=== PATIENT | female | born 2005 | race Caucasian/White ===

== ENCOUNTER 2024-06-03 07:49 | Outpatient (CLI) | payer BC, SELFPAY ==
--- OUTSIDE RECORDS SUMMARY | 2024-06-03 07:52 | XMS_ITS | Encounter Summary ---
Author Organization [facility] Address [address] [place] [address]. [place] [address] Care Team Providers Care Pantograph Setter Name Role Phone Elisabet Trinh PA-C Unavailable [phone] Madisyn Goodman APRN MEDICAL RECORDS ANALYST Primary Care Provide r Windy Morris MD Unavailable [phone] Reason for Visit * Reason Onset Date Comments Refill Request 07/17/2023 Encounter Details Date Type Department Care Team (Late st Contact Info) Description 07/17/2023 MyC Refill [address] [phone] Madisyn Goodman APRN MEDICAL RECORDS ANALYST [address] [place] [address] Refill Request Social History Tobacco Use Types Packs/Day Years Used Date Smoking Tobacco: Never Smokeless Tobacco: Never Alcohol Use Standard Drinks/Week Comments Never 0 (1 standard drink = 0.6 oz pur e alcohol) AUDIT-C Answer Date Recorded Q1: How often do you have a drink containing alc ohol? Never 10/06/2020 Average Number of Drinks Not on file 021 Frequency of Binge Drinking Not on file 09/20 PHQ-2 Answer Date Recorded PHQ-2 Score 0 06/13/2023 Adolescent Education Answer Date Record ed Getting School Help Needed Not on file 04/13 Food Insecurity Answer Date Recorded Within the past 12 months, d id you worry that your food would run out before you got money to buy more? No 06/12/2023 Within the past 12 months, d id the food you bought just not last and you didn? t have money to get more? No 06/12/2023 Housing Stability Answer Date Recorded Do you have housing? (Tawnya andrade is defined as stable permanent housing and does not include staying ouside in a car, in a tent, in an abandoned building, in an overnight senior living, or couch-surfing.) Yes 06/12/2023 Are you worried about losing your housing? No 06/12/2023 Financial Resource Strain Answer Date R ecorded Within the past 12 months, h ave you or your family members you live with been unable to get utilities (heat, electricity) when it was really needed? No 06/12/2023 Transportation Needs Answer Date Record ed Within the past 12 months, h as lack of transportation kept you from medical appointments, getting your medicines, non-medical meetings or appointments, work, or from getting things that you need? No 06/12/2023 Interpersonal Safety Answer Date Record ed Do you feel physically and e motionally safe where you currently live? Yes 06/13/2023 Within the past 12 months, h ave you been hit, slapped, kicked or otherwise physically hurt by someone? No 06/13/2023 Within the past 12 months, h ave you been humiliated or emotionally abused in other ways by your partner or ex-partner? 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 Gender Identity Not on file Sexual Orientation Not on file documented as of this encounter Plan of Treatment Not on file documented as of this encounter Visit Diagnoses Not on filedocumented in this encounter Care Teams Pantograph Setter Relationship Specialty Start Date End Date Madisyn Goodman APRN CNP [address] [place] [address] PCP - General 06/12/23 Elisabet Trinh PA-C [address] [place] [address] Assigned Neuroscience Provider 03/10/23 08/15/23 Windy Morris MD [address] [place] [address] Assigned PCP 06/16/23 documented as of this encounter
--- OUTSIDE RECORDS SUMMARY | 2024-06-03 07:52 | XMS_ITS | Encounter Summary ---
Author Organization [facility] Address [address] [place] [address] Care Team Providers Care Dental Hygiene Instructor Name Role Phone Madisyn Gregg APRN, CNP Primary Care Provide r Windy Morris MD Unavailable [phone] Reason for Visit * Reason Comments Medication Refill Encounter Details Date Type Department Care Team (Late st Contact Info) Description 02/25/2024 Refill [facility] [address] [place] [phone] Madisyn Gregg APRN [address] [address] Medication Refill Social History Tobacco Use Types Packs/Day Years [...] in an abandoned building, in an overnight alf, or couch-surfing.) Yes 06/12/2023 Are you worried [...] on file 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 Patient is due for a routine physical. Madisyn Gregg DNP, BRIAN-CLARK documented in this encounter Plan of Treatment Not on file documented as of this encounter Visit Diagnoses Diagnosis Contraceptive management Unspecified contraceptive management documented in this encounter Care Teams Dental Hygiene Instructor Relationship Specialty Start Date End Date Madisyn Gregg APRN MERCURY CRACKING TESTER [address] [place] [address], [place] [address] PCP - General 06/12/23 Windy Morris MD [address] [place] [address], [place] [address] Assigned PCP 06/16/23 documented as of this encounter
--- OUTSIDE RECORDS SUMMARY | 2024-06-03 07:52 | XMS_ITS | Encounter Summary ---
Author Organization [facility] Address [address] [place] [address]. [place] [address] Care Team Providers Care Anatomical Embalmer Name Role Phone Madisyn Goodman APRN, CNP Primary Care Provide r Windy Morris MD Unavailable [phone] Reason for Visit * Reason Onset Date Comments Refill Request 03/06/2024 Encounter Details Date Type Department Care Team (Late st Contact Info) Description 03/06/2024 MyC Refill [facility] [address] [place] [phone] Madisyn Goodman APRN CNP [address] [place] [address] Refill Request Social History Tobacco Use Types [...] in an abandoned building, in an overnight group home, or couch-surfing.) Yes 06/12/2023 Are you worried [...] on file 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 Gender Identity Not on file Sexual Orientation Not on file documented as of this encounter Miscellaneous Notes * Telephone Encounter - Elvi Avilez, RN - 03/07/2024 2:02 PM CDT Pending Prescriptions: Disp Refills norgestim-eth estrad triphasic (ORTHO TRI-*28 tab*0 Sig: Take 1 tablet by mouth daily NEEDS OFFICE VISIT FOR FURTHER REFILLS Routing refill request to provider for review/approval because: Requested Prescriptions Pending Prescriptions Disp Refills norgestim-eth estrad triphasic (ORTHO TRI-CYCLEN) 0.18/0.215/0.25 MG-35 MCG tablet 28 tablet 0 Sig: Take 1 tablet by mouth daily NEEDS OFFICE VISIT FOR FURTHER REFILLS Contraceptives Protocol Failed - 03/06/2024 7:20 PM Failed - Medication indicated for associated diagnosis Medication is associated with one or more of the following diagnoses: Contraception Acne Dysmenorrhea Menorrhagia Amenorrhea PCOS Premenstrual Dysphoric Disorder Irregular menses Endometriosis Passed - Patient is not a current smoker if age is 35 or older Passed - Recent (12 mo) or future (30 days) visit within the authorizing provider's specialty The patient must have completed an in-person or virtual visit within the past 12 months or has a future visit scheduled within the next 90 days with the authorizing provider???s specialty. Urgent care and e-visits do not quality as an office visit for this protocol. Passed - Medication is active on med list Passed - No active on record Passed - No positive test in past 12 months Elvi Avilez RN [facility] documented in this encounter Plan of Treatment Not on file documented as of this encounter Visit Diagnoses Diagnosis Contraceptive management Unspecified contraceptive management documented in this encounter Care Teams Anatomical Embalmer Relationship Specialty Start Date End Date Madisyn Goodman APRN CNP [address] [place] [address] PCP - General 06/12/23 Windy Morris MD [address] [place] [address] Assigned PCP 06/16/23 documented as of this encounter
--- OUTSIDE RECORDS SUMMARY | 2024-06-03 07:52 | XMS_ITS | Clinical Summary ---
Author Organization [id number] Address [place], [place] [address] Care Team Providers Care Supervisor Quality Control Name Role Phone None, Provided Primary Care Provider Unavailabl e Allergies No known active allergies Medications Medication Sig Dispensed Refills Start Date End Date Status norgestimate-ethinyl estradioL (ORTHO TRI-CYCLEN) 0.18/0.215/0.25 mg-35 mcg (28) tablet Take 1 Tablet by mouth once daily. 09/03/2023 Active ondansetron (ZOFRAN ODT) [address] 4 mg on the tongue every 8 hours if needed for Nausea/Vomiting . 09/03/2023 Active busPIRone 7.5 mg tabletIndications:Anxi ety Take 2 Tablets (15 mg) by mouth two times daily. 120 Tablet 10/04/2023 Active Active Problems No known active problems Immunizations Name Administration Dates Next Due EXdP-PjcF-AHV (Pediarix) 01/06/2004,2003,0 2003 DTaP-IPV (Kinrix) 02/16/2009 Hepatitis A (Adult) 06/13/2023 Hib Conjugate, Unspecified 2003,2003 Influenza A (H1N1), Live Intranasal 08/05/2009,1 09/08/2008 MMR 02/16/2009,01/19/2009 Meningococcal Vaccine (Menactra) 02/21/2016 Pneumococcal conj 7-Valent (Prevnar 7) 4,2003 Tdap 02/21/2016 Varicella Vaccine 05/31/2009,01/19/2009 Social History Tobacco Use Types Packs/Day Years Used Date Smoking Tobacco: Never Smokeless Tobacco: Never Alcohol Use Standard Drinks/Week Comments Never 0 (1 standard drink = 0.6 oz pur e alcohol) PHQ-2 Answer Date Recorded PHQ-2 TOTAL SCORE 2 09/06/2023 Social Connections Answer Date Recorded Do you often feel lonely or isolated from those around you? 0 09/06/2023 Financial Resource Strain Answer Date R ecorded Difficulty of Paying Living Expenses 3 09/06/2023 Difficulty of Paying Living Expenses Not on file 09/06/2023 Food Insecurity Answer Date Recorded Do you worry your food will run out before you are able to buy more? 1 09/06/2023 Transportation Needs Answer Date Record ed Does lack of transportation keep you from medica l appointments? 1 09/06/2023 Does lack of transportation keep you from work, meetings or getting things that you need? 1 09/06/2023 Housing Stability Answer Date Recorded What is your housing situation today? 1 09/06/2023 Sex and Gender Information Value Date Recorded Sex Assigned at Not on file Gender Identity Not on file Sexual Orientation Not on file Obstetrics History Last Filed Vital Signs Vital Sign Reading Time Taken Comments Blood Pressure 106/66 09/06/2023 10:32 AM BEESWAX BLEACHER Pulse 99 09/06/2023 10:32 AM BEESWAX BLEACHER Temperature 37.4 ??C (99.4 ??F) 04/01/2018 2:14 PM CD T Respiratory Rate - - Oxygen Saturation 100% 09/06/2023 10:32 AM BEESWAX BLEACHER Inhaled Oxygen Concentration - - Weight 52.6 kg (116 lb) 09/06/2023 10:32 AM BEESWAX BLEACHER Height 164.5 cm (5' 4.76) 04/01/2018 2:14 PM CD T Body Mass Index - - Plan of Treatment Health Maintenance Due Date Last Done Comments HIV for age 15-65 2018 HPV series for age 9-26 (1 - 3-dose series) 2018 Chlamydia for age 16-24 2019 BMI (ht and wt on same day) for age 18+ 2021 Hepatitis C screening for ag e 18-79 2021 COVID-19 vaccine series ( season) 2024 08/19/2021, 02/25/2021 Influenza for age 9-49 03/23/2024 0, 07/08/2009 Pap test for age 21-65 2024 Depression screening for age 12+ 09/06/2024 09/06/2023, 04/01/2018 Tetanus booster 02/20/2026 02/21/2016 Pneumococcal series for age 6-64 Aged Out 2003, 2003 No longer eligible based on patient's age to complete this topic Meningococcal series for age 11-21 Aged Out 02/21/2016 No longer eligible b ased on patient's age to complete this topic Tdap Completed 02/21/2016 Care Teams Supervisor Quality Control Relationship Specialty Start Date End Date None, Provided . PCP - General 08/13/07
--- OUTSIDE RECORDS SUMMARY | 2024-06-03 07:52 | XMS_ITS | Encounter Summary ---
Author Organization [facility] Address [address] [place] [address] Care Team Providers Care Gas Engineer Name Role Phone Madisyn Goodman APRN, CNP Unavailable Elisabet Trinh PA-C Unavailable [phone] Madisyn Goodman APRN, CNP Primary Care Provide r Windy Morris MD Unavailable [phone] Reason for Visit * Reason Onset Date Comments Prior Auth - Medication 06/13/2023 Scopolam ine 1mg /3day Encounter Details Date Type Department Care Team (Late st Contact Info) Description 06/13/2023 Telephone [facility] [address] [place] [phone] Madisyn Goodman APRN [facility] [address] [place] [address] Prior Auth - Medication (Scopolamine 1mg /3day ) Social History Tobacco Use Types Packs/Day Years [...] in an abandoned building, in an overnight skilled nursing, or couch-surfing.) Yes 06/12/2023 Are you worried [...] on file Legal Sex Female 8:42 AM APPLICATION DEVELOPER Gender Identity Not on file Sexual Orientation Not on file documented as of this encounter Miscellaneous Notes * Telephone Encounter - Erna Condeomid - 06/19/2023 5:29 PM CST Images from the original note were not included. Prior Authorization Not Needed per Insurance Medication: SCOPOLAMINE 1 MG/3DAYS TD PT72 Insurance Company: [employer] - Expected CoPay: $ Pharmacy Filling the Rx: [facility] [place], [place] - [address] [place] [address] Pharmacy Notified: Yes Patient Notified: Yes ICATION DEVELOPER * Telephone Encounter - Naya Conde - 06/19/2023 2:01 PM CST Images from the original note were not included. PA Initiation Medication: SCOPOLAMINE 1 MG/3DAYS TD PT72 Insurance Company: [employer] [facility] - Pharmacy Filling the Rx: [facility] [place] [id number] [place] [address] Filling Pharmacy Filling Pharmacy Fax: Start Date: 06/19/2023 ICATION DEVELOPER * Telephone Encounter - Luanne Aldridge - 06/13/2023 5:42 PM CST Prior Authorization Retail Medication Request Medication/Dose: Scopolamine 1mg /3day Diagnosis and ICD code (if different than what is on RX): New/renewal/insurance change PA/secondary ins. PA: Previously Tried and Failed: Rationale: PA REQUIRED [phone] PRESCRIBER NOT ENROLLED IN STATE MEDICAID PROGRAM. PLEASE CONTACT [facility] AT [phone] OR , OPTION 2 Insurance Primary: [facility] Secondary (if applicable): Insurance ID: Pharmacy Information (if different than what is on RX) Name: Phone: Fax: ICATION DEVELOPER documented in this encounter Plan of Treatment Not on file documented as of this encounter Visit Diagnoses Not on filedocumented in this encounter Care Teams Gas Engineer Relationship Specialty Start Date End Date Madisyn Goodman APRN [facility] [address] [place] [address] PCP - General 06/12/23 Madisyn Goodman APRN CNP [address] [place] [address] Assigned PCP 09/16/22 06/15/23 Elisabet Trinh PA-C [address] [place] [address] Assigned Neuroscience Provider 03/10/23 08/15/23 Windy Morris MD [address] [place] [address] Assigned PCP 06/16/23 documented as of this encounter
--- OUTSIDE RECORDS SUMMARY | 2024-06-03 07:52 | XMS_ITS | Encounter Summary ---
Author Organization [facility] Address [address] [place] [address]. [place] [address] Care Team Providers Care Account Specialist Name Role Phone Madisyn Goodman APRN OFFICE TECHNICIAN Primary Care Provide r Windy Morris MD Unavailable [phone] Encounter Details Date Type Department Care Team (Late st Contact Info) Description 04/29/2024 MyC Medical Advice [facility] [address] [place] [phone] Kristin Lacey CMA Social History Tobacco Use Types Packs/Day Years [...] Answer Date Recorded Do you have housing? 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
--- OUTSIDE RECORDS SUMMARY | 2024-06-03 07:52 | XMS_ITS | Encounter Summary ---
Author Organization [facility] Address [address] [place] [address] Care Team Providers Care Chemical Sales Representative Name Role Phone Madisyn Goodman APRN, CNP Primary Care Provide r Windy Morris MD Unavailable [phone] Reason for Visit * Reason Onset Date Comments Panel Management 04/29/2024 Encounter Details Date Type Department Care Team (Late st Contact Info) Description 04/29/[address] 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 Questions for provider review: None Kristin Lacey CMA documented in this encounter Plan of Treatment Not on file documented as of this encounter Visit Diagnoses Not on filedocumented in this encounter Care Teams Chemical Sales Representative Relationship Specialty Start Date End Date Madisyn Goodman APRN INSTRUCTOR MILITARY SCIENCE [address] [place] [address], [place] [address] PCP - General 06/12/23 Windy Morris MD [address] [place] [address], [place] [address] Assigned PCP 06/16/23 documented as of this encounter
--- OUTSIDE RECORDS SUMMARY | 2024-06-03 07:52 | XMS_ITS | Encounter Summary ---
Author Organization [facility] Address [address] [place] [address] Care Team Providers Care Team Foreman Name Role Phone Madisyn Goodman APRN, CNP Primary Care Provide r Windy Morris MD Unavailable [phone] Reason for Visit * Reason Comments Med Change Request Encounter Details Date Type Department Care Team (Late st Contact Info) Description 03/06/2024 [facility] [address] [place] [phone] Madisyn Goodman APRN [address] [address] Med Change Request Social History Tobacco Use Types Packs/Day [...] in an abandoned building, in an overnight detention, or couch-surfing.) Yes 06/12/2023 Are you worried [...] on file Legal Sex Female 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
--- OUTSIDE RECORDS SUMMARY | 2024-06-03 07:52 | XMS_ITS | Clinical Summary ---
Author Organization [facility] Address [address] [place] [address] Care Team Providers Care Special Deputy Sheriff Name Role Phone Madisyn Goodman APRN, CNP Primary Care Provide r Windy Morris MD Unavailable [phone] Allergies No known active allergies Medications mupirocin (BACTROBAN) 2 % external ointmentIndicatio ns:Angular cheilitis due to bacterial infection Apply topically 3 times daily 30 g 1 Active Additional Information Patient not taking.Reported on 03/06/2023 triamcinolone (KENALOG) 0.025 % external ointmentIndicatio ns:Angular cheilitis Apply topically 2 times daily 15 g 3 Active scopolamine (TRANSDERM) 1 MG/3DAYS 72 hr patchIndications: Motion sickness, initial encounter Place 1 patch onto the skin every 72 hours 10 patch 3 Active azithromycin (ZITHROMAX) 500 MG tabletIndications :Traveler's diarrhea Take 1 tablet (500 mg) by mouth daily 6 tablet 3 Active norgestim-eth estrad triphasic (ORTHO TRI-CYCLEN) 0.18/0.215/0.25 MG-35 MCG tabletIndications :Encounter for surveillance of contraceptive pills Take 1 tablet by mouth daily NEEDS OFFICE VISIT FOR FURTHER REFILLS 84 tablet 4 Active Active Problems No known active problems Encounters Date Type Department Care Team Description 04/29/2024 MyC Medical Advice [address] [place] [address] Kristin Lacey CMA 04/29/[address] [place] [address] Windy Morris MD Panel Management 03/08/2024 MyC Refill [address] [place] [address] Madisyn Goodman APRN CONFERENCE ASSISTANT Refill Request 03/06/2024 MyC Refill [address] [place] [address] Madisyn Goodman APRN CONFERENCE ASSISTANT Refill Request 03/06/[address] [place] [address] Madisyn Goodman APRN CNP Med Change Request from Last 3 Months Immunizations Name Administration Dates Next Due DTAP-IPV, <7Y (QUADRACEL/KINRIX) 02/16/2009 DTaP/HepB/IPV 01/06/2004,2003,2003 [id number] Novel Flu- Nasal 08/05/2009,07/08/2009 HIB(PRP-OMP)(PedvaxHIB) 2003,2003 Hepatitis A (ADULT 19+) 06/13/2023 Influenza, Split Virus, Triv alent, Pf (Fluzone\Fluarix) 05/02/2024 MMR 02/16/2009,01/19/2009 Meningococcal ACWY (Menactra??) 02/21/2016 Pneumococcal (PCV 7) 2003,2003 TDAP Vaccine (Adacel) 02/21/2016 Varicella 05/31/2009,01/19/2009 Family History Medical History Relation Comments No Known Problems Father Hypertension Maternal Grandfather Hypertension Maternal Grandmother No Known Problems Mother Colon Cancer Paternal Grandfather Hypertension Paternal Grandmother Relation Status Comments Father Alive Maternal Grandfather Alive Maternal Grandmother Alive Mother Alive Paternal Grandfather Paternal Grandmother Alive Social History Tobacco Use Types Packs/Day Years [...] on file Legal Sex Female 8:42 AM END PACKER Gender Identity Not on file Sexual Orientation Not on file Last Filed Vital Signs Vital Sign Reading Time Taken Comments Blood Pressure 110/70 06/13/2023 9:25 AM END PACKER Pulse 82 06/13/2023 9:25 AM END PACKER Temperature 37.2 ??C (99 ??F) 06/13/2023 9:25 AM END PACKER Respiratory Rate 12 06/13/2023 9:25 AM END PACKER Oxygen Saturation 100% 06/13/2023 9:25 AM END PACKER Inhaled Oxygen Concentration - - Weight 57.6 kg (127 lb) 06/13/2023 9:25 AM END PACKER Height 165.5 cm (5' 5.16) 06/13/2023 9:25 AM CS T Body Mass Index 21.03 06/13/2023 9:25 AM END PACKER Plan of Treatment Health Maintenance Due Date Last Done Comments ADVANCE CARE PLANNING 2003 ANNUAL REVIEW OF HM ORDERS 2003 YEARLY PREVENTIVE VISIT 2003 HIV SCREENING 2018 HPV IMMUNIZATION (1 - 3-dose series) 2018 HEPATITIS C SCREENING 2021 PHQ-2 (once per calendar year) 2023 06/13/2023 COVID-19 Vaccine ( season) 2024 08/19/2021, 02/25/2021 PAP 2024 DTAP/TDAP/TD IMMUNIZATION (6 - Td or Tdap) 02/20/2026 02/21/2016, 02/16/2009, 01/06/2004, Additional history exists RSV VACCINE (1 - 1-dose 75+ series) 2078 Pneumococcal Vaccine: Pediatrics (0 to 5 Years) and At-Risk Patients (6 to 64 Years) Aged Out 2003, 2003 No longer eligibl e based on patient's age to complete this topic HEPATITIS B IMMUNIZATION Completed 004, 2003, 2003 MENINGITIS IMMUNIZATION Aged Out 02/21/2016 No l onger eligible based on patient's age to complete this topic INFLUENZA VACCINE Completed 05/02/2024, , 07/08/2009 RSV MONOCLONAL ANTIBODY Aged Out No l onger eligible based on patient's age to complete this topic Insurance [facility] [place] [address] [facility] [employer] OUT OF STATE Care Teams Special Deputy Sheriff Relationship Specialty Start Date End Date Madisyn Goodman APRN CONFERENCE ASSISTANT [address] [place] [address], [place] [address] PCP - General 06/12/23 Windy Morris MD [address] [place] [address], [place] [address] Assigned PCP 06/16/23
--- OUTSIDE RECORDS SUMMARY | 2024-06-03 07:52 | XMS_ITS | Referral Summary ---
Author Organization [facility] Address [address] [place] [address] Care Team Providers Care Physicist Cryogenics Name Role Phone Madisyn Goodman APRN, CNP Primary Care Provide r Windy Morris MD Unavailable [phone] Encounters Date Type Department Care Team Description 04/29/2024 MyC Medical Advice [address] [phone] Kristin Lacey CMA 04/29/[address] [phone] Windy Morris MD Panel Management 03/08/2024 MyC Refill [address] [phone] Madisyn Goodman APRN CNP Refill Request 03/06/2024 MyC Refill [address] [phone] Madisyn Goodman APRN CNP Refill Request 03/06/[address] [phone] Madisyn Goodman APRN CNP Med Change Request from Last 3 Months Allergies No known active allergies Medications mupirocin [...] problems Immunizations Name Administration Dates Next Due DTAP-IPV, <7Y (QUADRACEL/KINRIX) 02/16/2009 DTaP/HepB/IPV 01/06/2004,2003,2003 [id number] Novel Flu- Nasal 08/05/2009,07/08/2009 HIB(PRP-OMP)(PedvaxHIB) 2003,2003 Hepatitis A (ADULT 19+) 06/13/2023 Influenza, Split Virus, Triv alent, Pf (Fluzone\Fluarix) 05/02/2024 MMR 02/16/2009,01/19/2009 Meningococcal ACWY (Menactra??) 02/21/2016 Pneumococcal (PCV 7) 2003,2003 TDAP Vaccine (Adacel) 02/21/2016 Varicella 05/31/2009,01/19/2009 Social History Tobacco Use Types Packs/Day [...] Date Recorded Do you have housing? (Tawnya g is defined as stable permanent housing and does not include staying ouside in a car, in a tent, in an abandoned building, in an overnight residential, or couch-surfing.) Yes 06/12/2023 Are you worried [...] on file Legal Sex Female 8:42 AM PROCESS TECH Gender Identity Not on file Sexual Orientation Not on file Last Filed Vital Signs Vital Sign Reading Time Taken Comments Blood Pressure 110/70 06/13/2023 9:25 AM PROCESS TECH Pulse 82 06/13/2023 9:25 AM PROCESS TECH Temperature 37.2 ??C (99 ??F) 06/13/2023 9:25 AM PROCESS TECH Respiratory Rate 12 06/13/2023 9:25 AM PROCESS TECH Oxygen Saturation 100% 06/13/2023 9:25 AM PROCESS TECH Inhaled Oxygen Concentration - - Weight 57.6 kg (127 lb) 06/13/2023 9:25 AM PROCESS TECH Height 165.5 cm (5' 5.16) 06/13/2023 9:25 AM CS T Body Mass Index 21.03 06/13/2023 9:25 AM PROCESS TECH Plan of Treatment Not on file Insurance [facility] OUT OF STATE [facility] Care Teams Physicist Cryogenics Relationship Specialty Start Date End Date Madisyn Goodman APRN CNP [address] [place] [address] PCP - General 06/12/23 Windy Morris MD [address] [place] [address] Assigned PCP 06/16/23
--- OUTSIDE RECORDS SUMMARY | 2024-06-03 07:52 | XMS_ITS | Encounter Summary ---
Author Organization [facility] Address [address] [place] [address]. [place] [address] Care Team Providers Care Welt Rougher Name Role Phone Madisyn Goodman APRN, CNP Primary Care Provide r Windy Morris MD Unavailable [phone] Reason for Visit * Reason Onset Date Comments Refill Request 03/08/2024 Encounter Details Date Type Department Care Team (Late st Contact Info) Description 03/08/2024 MyC Refill [facility] [address] [place] [phone] Madisyn Goodman APRN CNP [address] [place] [address] Refill Request Social History Tobacco Use Types [...] in an abandoned building, in an overnight usp, or couch-surfing.) Yes 06/12/2023 Are you worried [...] on file Legal Sex Female 8:42 AM ACCESS SERVICE REPRESENTATIVE Gender Identity Not on file Sexual Orientation Not on file documented as of this encounter Plan of Treatment Not on file documented as of this encounter Visit Diagnoses Diagnosis Encounter for surveillance of contraceptive pills Surveillance of previously prescribed contraceptive pill documented in this encounter Care Teams Welt Rougher Relationship Specialty Start Date End Date Madisyn Goodman APRN CNP [address] [place] [address] PCP - General 06/12/23 Windy Morris MD [address] [place] [address] Assigned PCP 06/16/23 documented as of this encounter
== END 2024-06-03 07:50 | disposition home or self-care (01) ==
PROVIDERS: Visit Provider Family Medicine
DX: Z01.419 Encounter for gynecological examination (general) (routine) without abnormal findings (principal); R53.83 Other fatigue; F41.1 Generalized anxiety disorder; R00.2 Palpitations; R55 Syncope and collapse; Z12.4 Encounter for screening for malignant neoplasm of cervix; Z13.6 Encounter for screening for cardiovascular disorders; Z11.3 Encounter for screening for infections with a predominantly sexual mode of transmission
CPT/HCPCS: 80053; 80061; 82607; 84443; 87491; 87591; 87624; 87625; 88141; 88142

== ENCOUNTER 2024-06-25 20:54 | Emergency (ER) | payer BC, SELFPAY ==
[2024-06-25 21:02] VITALS: BP 132/74; PULSE 95; RESP 18; TEMP 36.7; O2SAT 100; BMI 22.5
[2024-06-25 21:04] VITALS: BP 136/88; PULSE 85; RESP 20; O2SAT 99
--- NOTE | 2024-06-25 21:10 | CRLHL7_ITS ---
For Patients: As a result of the Century Cures Act, medical imaging exams and procedure reports are released immediately into your electronic medical record. You may view this report before your referring provider. If you have questions, please contact your health care provider. INDICATION: Chest pain. TECHNIQUE: Chest 2 views. COMPARISON: None. FINDINGS: Cardiovascular and mediastinum: Heart size and vasculature are normal in caliber and appearance. Lungs and pleural spaces: Lungs are clear. No sign of infiltrate or mass. No sign of pleural effusion. No pneumothorax. Bones and soft tissues: No significant findings. IMPRESSION: No acute or significant findings. Dictated by Kannan Vaughan MD @ 06/25/2024 10:29:24 PM (Electronically Signed)
[2024-06-25 21:14] VITALS: BP 129/73; PULSE 97; RESP 20; O2SAT 99
--- OUTSIDE RECORDS SUMMARY | 2024-06-25 21:23 | XMS_ITS | Clinical Summary ---
Author Organization [facility] Address [address] [place] [address] Care Team Providers Care Inside Sales Engineer Name Role Phone Madisyn Goodman APRN, CNP Primary Care Provide r Windy Morris MD Unavailable [phone] Allergies No known active allergies Medications [...] Care Team Description 04/29/2024 MyC Medical Advice [facility] [address] [place] [phone] Kristin Lacey CMA 04/29/2024 Telephone [facility] [address] [place] [phone] Windy Morris MD Panel Management from Last 3 Months Immunizations Name Administration Dates Next Due DTAP-IPV, <7Y (QUADRACEL/KINRIX) 02/16/2009 DTaP/HepB/IPV 01/06/2004,2003,2003 [id number] Novel Flu- Nasal 08/05/2009,07/08/2009 HIB(PRP-OMP)(PedvaxHIB) 2003,2003 Hepatitis A (ADULT 19+) 06/13/2023 Influenza, Split Virus, Triv alent, Pf (Fluzone\Fluarix) 05/02/2024 MMR 02/16/2009,01/19/2009 Meningococcal ACWY (Menactra ) 02/21/2016 Pneumococcal (PCV 7) 2003,2003 TDAP Vaccine [...] you bought just not last and you didn t have money to get more? No 06/12/2023 Housing Stability Answer Date Recorded Do you have housing? (Tanwya andrade is defined as stable permanent housing and does not include staying ouside in a car, in a tent, in an abandoned building, in an overnight fci, or couch-surfing.) Yes 06/12/2023 Are you worried [...] on file Legal Sex Female 8:42 AM KNITTING INSPECTOR Gender Identity Not on file Sexual Orientation Not on file Last Filed Vital Signs Vital Sign Reading Time Taken Comments Blood Pressure 110/70 06/13/2023 9:25 AM KNITTING INSPECTOR Pulse 82 06/13/2023 9:25 AM KNITTING INSPECTOR Temperature 37.2 C (99 F) 06/13/2023 9:25 AM KNITTING INSPECTOR Respiratory Rate 12 06/13/2023 9:25 AM KNITTING INSPECTOR Oxygen Saturation 100% 06/13/2023 9:25 AM KNITTING INSPECTOR Inhaled Oxygen Concentration - - Weight 57.6 kg (127 lb) 06/13/2023 9:25 AM KNITTING INSPECTOR Height 165.5 cm (5' 5.16) 06/13/2023 9:25 AM CS T Body Mass Index 21.03 06/13/2023 9:25 AM KNITTING INSPECTOR Plan of Treatment Health Maintenance Due Date Last Done Comments ADVANCE CARE PLANNING 2003 ANNUAL REVIEW OF HM ORDERS 2003 YEARLY PREVENTIVE VISIT 2003 HIV SCREENING 2018 HPV IMMUNIZATION (1 - 3-dose series) 2018 HEPATITIS C SCREENING 2021 PHQ-2 (once per calendar year) 2023 06/13/2023 COVID-19 Vaccine (3 - season) 2024 08/19/2021, 02/25/2021 PAP 2024 DTAP/TDAP/TD [...] age to complete this topic Insurance [facility] OUT OF STATE Care Teams Inside Sales Engineer Relationship Specialty Start Date End Date Madisyn Goodman APRN CNP [address] [place] [address] PCP - General 06/12/23 Windy Morris MD [address] [place] [address] Assigned PCP 06/16/23
--- OUTSIDE RECORDS SUMMARY | 2024-06-25 21:23 | XMS_ITS | Encounter Summary ---
Author Organization [facility] Address [address] [place] [address]. [place] [address] Care Team Providers Care Automotive Sales Manager Name Role Phone Elisabet Trinh PA-C Unavailable [phone] Madisyn Goodman APRN ALGORITHM DESIGN ENGINEER Primary Care Provide r Windy Morris MD Unavailable [phone] Reason for Visit * Reason Onset Date Comments Refill Request 07/17/2023 Encounter Details Date Type Department Care Team (Late st Contact Info) Description 07/17/2023 MyC Refill [address] [phone] Madisyn Goodman APRN ALGORITHM DESIGN ENGINEER [address] [place] [address] Refill Request Social History Tobacco Use Types [...] on file Legal Sex Female 8:42 AM ART GALLERY INTERNSHIP Gender Identity Not on file Sexual Orientation Not on file documented as of this encounter Plan of Treatment Not on file documented as of this encounter Visit Diagnoses Not on filedocumented in this encounter Care Teams Automotive Sales Manager Relationship Specialty Start Date End Date Madisyn Goodman APRN CNP [address] [place] [address] PCP - General 06/12/23 Elisabet Trinh PA-C [address] [place] [address] Assigned Neuroscience Provider 03/10/23 08/15/23 Windy Morris MD [address] [place] [address] Assigned PCP 06/16/23 documented as of this encounter
--- OUTSIDE RECORDS SUMMARY | 2024-06-25 21:23 | XMS_ITS | Referral Summary ---
Author Organization [facility] Address [address] [place] [address] Care Team Providers Care Store Leader Name Role Phone Madisyn Goodman APRN, CNP Primary Care Provide r Windy Morris MD Unavailable [phone] Encounters Date Type Department Care Team Description 04/29/2024 MyC Medical Advice [address] [phone] Kristin Lacey CMA 04/29/[address] [phone] Windy Morris MD Panel Management from Last 3 Months Allergies No known [...] Due DTAP-IPV, <7Y (QUADRACEL/KINRIX) 02/16/2009 DTaP/HepB/IPV 01/06/2004,2003,2003 [id number] Novel Flu- Nasal 08/05/2009,07/08/2009 HIB(PRP-OMP)(PedvaxHIB) 2003,2003 Hepatitis [...] in an abandoned building, in an overnight fpc, or couch-surfing.) Yes 06/12/2023 Are you worried [...] on file Legal Sex Female 8:42 AM BREAST BUFFER Gender Identity Not on file Sexual Orientation Not on file Last Filed Vital Signs Vital Sign Reading Time Taken Comments Blood Pressure 110/70 06/13/2023 9:25 AM BREAST BUFFER Pulse 82 06/13/2023 9:25 AM BREAST BUFFER Temperature 37.2 C (99 F) 06/13/2023 9:25 AM BREAST BUFFER Respiratory Rate 12 06/13/2023 9:25 AM BREAST BUFFER Oxygen Saturation 100% 06/13/2023 9:25 AM BREAST BUFFER Inhaled Oxygen Concentration - - Weight 57.6 kg (127 lb) 06/13/2023 9:25 AM BREAST BUFFER Height 165.5 cm (5' 5.16) 06/13/2023 9:25 AM CS T Body Mass Index 21.03 06/13/2023 9:25 AM BREAST BUFFER Plan of Treatment Not on file Insurance [facility] OUT OF STATE [facility] STATE Care Teams Store Leader Relationship Specialty Start Date End Date Madisyn Goodman APRN PRESSER MACHINE [address] [place] [address] PCP - General 06/12/23 Windy Morris MD [address] [place] [address] Assigned PCP 06/16/23
--- OUTSIDE RECORDS SUMMARY | 2024-06-25 21:23 | XMS_ITS | Encounter Summary ---
Author Organization [facility] Address [address] [place] [address]. [place] [address] Care Team Providers Care Chief Passenger Ship Steward/Stewardess Name Role Phone Madisyn Goodman APRN REHAB LIAISON Primary Care Provide r Windy Morris MD Unavailable [phone] Encounter Details Date Type Department Care Team (Late st Contact Info) Description 04/29/2024 MyC Medical Advice [facility] [address] [place] [phone] Krsitin Lacey CMA Social History Tobacco Use Types [...] an abandoned building, in an overnight senior care, or couch-surfing.) Yes 06/12/2023 Are you worried [...] on file Legal Sex Female 8:42 AM FLIGHT ENGINEER INSPECTOR Gender Identity Not on file Sexual Orientation Not on file documented as of this encounter Plan of Treatment Not on file documented as of this encounter Visit Diagnoses Not on filedocumented in this encounter Care Teams Chief Passenger Ship Steward/Stewardess Relationship Specialty Start Date End Date Madisyn Goodman APRN CNP [address] [place] [address] PCP - General 06/12/23 Windy Morris MD [address] [place] [address] Assigned PCP 06/16/23 documented as of this encounter
--- OUTSIDE RECORDS SUMMARY | 2024-06-25 21:23 | XMS_ITS | Encounter Summary ---
Author Organization [facility] Address [address] [place] [address] Care Team Providers Care Prepress Operator Name Role Phone Madisyn Goodman APRN, CNP Primary Care Provide r Windy Morris MD Unavailable [phone] Reason for Visit * Reason Onset Date Comments Panel Management 04/29/2024 Encounter Details Date Type Department Care Team (Late st Contact Info) Description 04/29/2024 Telephone [facility] [address] [place] [phone] Windy Morris MD [address] [place] [address] Panel Management Social History Tobacco Use Types [...] on file Legal Sex Female 8:42 AM SUPERVISOR FUR DRESSING Gender Identity Not on file Sexual Orientation Not on file documented as of this encounter Miscellaneous Notes * Telephone Encounter - Kristin Lacey CMA - 04/29/2024 11:47 AM CDT Patient Quality Outreach Patient is due for the following: Physical Preventive Adult Physical Chlamydia Screening Next Steps: Schedule a Adult Preventative Type of outreach: Sent Sent[employer] message. Questions for provider review: None Kristin Lacey CMA documented in this encounter Plan of Treatment Not on file documented as of this encounter Visit Diagnoses Not on filedocumented in this encounter Care Teams Prepress Operator Relationship Specialty Start Date End Date Madisyn Goodman APRN MEDIA EXECUTIVE [address] [place] [address], [place] [address] PCP - General 06/12/23 Windy Morris MD [address] [place] [address], [place] [address] Assigned PCP 06/16/23 documented as of this encounter
--- OUTSIDE RECORDS SUMMARY | 2024-06-25 21:23 | XMS_ITS | Clinical Summary ---
Author Organization [facility] Address [place], [place] [address] Care Team Providers Care Nnp Name Role Phone None, Provided Primary Care [...] problems Immunizations Name Administration Dates Next Due [id number] (Pediarix) 01/06/2004,2003,0 2003 DTaP-IPV (Kinrix) 02/16/2009 Hepatitis [...] Comments Blood Pressure 106/66 09/06/2023 10:32 AM SEED ANALYSIS LABORATORY ASSISTANT Pulse 99 09/06/2023 10:32 AM SEED ANALYSIS LABORATORY ASSISTANT Temperature 37.4 C (99.4 F) 04/01/2018 2:14 PM CDT Respiratory Rate - - Oxygen Saturation 100% 09/06/2023 10:32 AM SEED ANALYSIS LABORATORY ASSISTANT Inhaled Oxygen Concentration - - Weight 52.6 kg (116 lb) 09/06/2023 10:32 AM SEED ANALYSIS LABORATORY ASSISTANT Height 164.5 cm (5' 4.76) 04/01/2018 2:14 [...] this topic Tdap Completed 02/21/2016 Care Teams Nnp Relationship Specialty Start Date End Date None, Provided . PCP - General 08/13/07
--- OUTSIDE RECORDS SUMMARY | 2024-06-25 21:23 | XMS_ITS | Encounter Summary ---
Author Organization [facility] Address [address] [place] [address] Care Team Providers Care Marine Engineering Consultant Name Role Phone Madisyn Goodman APRN, CNP Unavailable Elisabet Trinh PA-C Unavailable Madisyn Goodman APRN, CNP Primary Care Provide r Windy Morris MD Unavailable [phone] Reason for Visit * Reason Onset Date Comments Prior Auth - Medication 06/13/2023 Scopolam ine 1mg /3day Encounter Details Date Type Department Care Team (Late st Contact Info) Description 06/13/2023 Telephone [facility] [address] [place] [phone] Madisyn Goodman APRN [facility] [address] [place] [address] Prior Auth - Medication (Scopolamine 1mg /3day [...] on file Legal Sex Female 8:42 AM PATIENT FINANCIAL SERVICES SPECIALIST Gender Identity Not on file Sexual Orientation Not on file documented as of this encounter Miscellaneous Notes * Telephone Encounter - Erna Condeomid - 06/19/2023 5:29 PM CST Images from the original note were not included. Prior Authorization Not Needed per Insurance Medication: SCOPOLAMINE 1 MG/3DAYS TD [id number] Insurance Company: [employer] - Expected CoPay: $ Pharmacy Filling the Rx: [facility] [place], [place] - [address] [place] [address] Pharmacy Notified: Yes Patient Notified: Yes ENT FINANCIAL SERVICES SPECIALIST * Telephone Encounter - Naya Conde - 06/19/2023 2:01 PM CST Images from the original note were not included. PA Initiation Medication: SCOPOLAMINE 1 MG/3DAYS TD PT72 Insurance Company: [employer] [facility] - Pharmacy Filling the Rx: [facility] [address] Filling Pharmacy Filling Pharmacy Fax: Start Date: 06/19/2023 ENT FINANCIAL SERVICES SPECIALIST * Telephone Encounter - Luanne Aldridge - 06/13/2023 5:42 PM CST Prior Authorization Retail Medication Request Medication/Dose: Scopolamine 1mg /3day Diagnosis and ICD code (if different than what is on RX): New/renewal/insurance change PA/secondary ins. PA: Previously Tried and Failed: Rationale: PA REQUIRED CALL [employer] [phone] PRESCRIBER NOT ENROLLED IN STATE MEDICAID PROGRAM. PLEASE CONTACT THE [facility] AT [phone] OR [phone], OPTION 2 Insurance Primary: [facility] Secondary (if applicable): Insurance ID: Pharmacy Information (if different than what is on RX) Name: Phone: Fax: ENT FINANCIAL SERVICES SPECIALIST documented in this encounter Plan of Treatment Not on file documented as of this encounter Visit Diagnoses Not on filedocumented in this encounter Care Teams Marine Engineering Consultant Relationship Specialty Start Date End Date Madisyn Goodman APRN DIRECTOR [place] [address] [place] [address] PCP - General 06/12/23 Madisyn Goodman APRN CNP [address] [place] [address] Assigned PCP 09/16/22 06/15/23 Elisabet Trinh PA-C [address] [place] [address] Assigned Neuroscience Provider 03/10/23 08/15/23 Windy Morris MD [address] [place] [address] Assigned PCP 06/16/23 documented as of this encounter
[2024-06-25 21:24] LABS: Basophils Absolute Auto 0.06 K/uL (0.00-0.30); Basophils Percent Auto 0.9 % (0.0-3.0); Eosinophils Absolute Auto 0.24 K/uL (0.00-0.50); Eosinophils Percent Auto 3.5 % (0.0-7.0); Hematocrit 38.9 % (33.0-51.0); Immature Granulocytes Abs Auto 0.01 K/uL (0.00-0.30); Immature Granulocytes Pct Auto 0.1 %; Lymphocytes Absolute Auto 2.39 K/uL (0.90-2.90); Lymphocytes Percent Auto 34.9 % (20-44); Mean Corpuscular HGB Conc 33 gm/dL (32-36); Mean Corpuscular Hemoglobin 29 pg (26-34); Mean Corpuscular Volume 88 fL (80-100); Monocytes Percent Auto 13.3 % (0.0-11.0); Neutrophils Absolute Auto 3.23 K/uL (1.7-7.0); Neutrophils Percent Auto 47.3 % (42.0-72.0); Platelet Count* 257 K/uL (140-440); RDW Coefficient of Variation % 12.7 % (11.5-15.5); Red Blood Count 4.42 m/uL (4.00-5.20); White Blood Count* 6.84 K/uL (4.50-11.00)
[2024-06-25 21:40] LABS: Chloride* 104 mmol/L (96-114); Potassium* 4.6 mmol/L (3.6-5.1); Sodium* 137 mmol/L (135-149)
[2024-06-25 21:42] LABS: Creatinine* 0.5 mg/dL (0.5-1.5); Est. Creatinine Clearance* 160.15; Estimated Glomerular Filt Rate 137 ml/min
[2024-06-25 21:43] LABS: Anion Gap 7 mEq/L (7-15); Blood Urea Nitrogen* 12 mg/dL (5-24); Calcium* 9.4 mg/dL (8.4-10.6); Carbon Dioxide* 26 mmol/L (20-32); Glucose* 99 mg/dL (60-115)
[2024-06-25 21:44] LABS: Slide Review Reflex No
--- NOTE | 2024-06-25 21:51 | ED_ITS ---
HPI - Chest Pain General Date Seen: 06/25/24 Chief Complaint: Chest Pain Stated Complaint: chest/heart pain Time Seen by Provider: 06/25/24 20:58 Source: patient Mode of arrival: ambulatory Limitations: no limitations History of Present Illness HPI narrative: Patient is a 19-year-old female presenting to the emergency department for intermittent chest pain for the past 3 days. She states it feels like a tightness sensation it comes and goes. Happens multiple times a day and last for couple hours. It is in her midsternal region. Has never had issues like this before. States when the symptoms 1st started she will have some shortness of breath and lightheadedness which she thinks that was mostly from her anxiety and she no longer has lightheadedness or shortness of breath when the symptoms occur. Is not currently symptomatic. Has no family history of at an early age. No associated fevers, chills, diarrhea, constipation, nausea/vomiting, headache, vision changes, weakness, numbness. No history of hormonal use, cancer, recent surgeries, hemoptysis, blood clots, lower extremity swelling. No other concerns noted at this time. Related Data Previous Rx's ?Medication ?Instructions ?Recorded norgestimate-ethinyl estradiol 1 tab PO DAILY #84 tabs 06/03/24 0.18 mg/0.215mg/0.25mg-35 mcg(28)tablet (Tri-Sprintec (28)) Allergies Allergy/AdvReac Type Severity Reaction Status Date / Time No Known Drug Allergies Allergy Verified 06/03/24 07:28 Review of Systems Status of ROS Reports: 10 or more systems reviewed and unremarkable except as noted in History and below [facility] Medical History History of panic attacks ?Z86.59 - Personal history of other mental and behavioral disorders (ICD-10) Vegetarian diet ?Z78.9 - Other specified health status (ICD-10) Surgical History No history of previous surgery Family History Father Alcohol dependence Social History Narrative: Single, has boyfriend, [employer]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, no kids Does not exercise Never smoker Rare alcohol use No drug use What is your current living situation?: I presently have a place to live Problems where you live: no known problems In the past 12 months, utilities in danger of being shut off: no In the past 12 mos, have been you worried that your food would run out before you had money to buy more?: never true In the past 12 mos, the food you bought just didn't last and you didn't have mo josi to buy more?: never true Smoking Status: Never smoker Second hand tobacco smoke exposure: No How often do you have a drink containing alcohol: never AUDIT-C Alcohol total score: 0 Non-prescribed substance use: denies use How often does anyone, including family, friends and others, physically hurt you : never How often does anyone, including family, friends and others, insult or talk down to you: never How often does anyone, including family, friends and others, threaten you with harm: never How often does anyone, including family, friends and others, scream or curse at you: never Exam Narrative Exam Narrative: Const: Well-nourished, Well-developed, in no distress Eyes: PERRL, no conjunctival injection, and symmetrical lids HENT: Atraumatic external nose and ears. Moist mucous membranes. Neck: Symmetric, trachea midline, No thyromegaly. CVS: RRR, No murmurs or gallops. Peripheral pulses 2+ and equal in all extremities RESP: Unlabored respiratory effort. Clear to auscultation bilaterally. GI: Nontender/Nondistended, No rebound or guarding. MSK:Extremities w/o deformity, Normal Active ROM Skin: Warm, Dry. No rashes or lesions. Neuro: Normal Muscle tone, No focal neurological deficits. Psych: Awake, Alert, & Oriented x3. Appropriate mood and affect. Const Vital Signs, click to edit/add: Vital Signs - 24 hr 06/25/24 21:02 06/25/24 21:04 06/25/24 21:14 Temperature 98.0 F Pulse Rate 85 97 Pulse Rate [Right Pulse Oximeter] 95 Respiratory Rate 18 20 20 Blood Pressure 136/88 129/73 Blood Pressure [Right Upper Arm] 132/74 Pulse Oximetry 100 99 99 Oxygen Delivery Method Room Air 06/25/24 22:02 06/25/24 22:45 06/25/24 22:46 Temperature 98.0 F 98.0 F Pulse Rate 94 Pulse Rate [Right Pulse Oximeter] 90 90 Respiratory Rate 20 20 20 Blood Pressure 108/75 Blood Pressure [Right Upper Arm] 112/70 112/70 Pulse Oximetry 100 100 Oxygen Delivery Method Room Air Course Vital Signs Vital signs: Initial Vital Signs Temperature 98.0 F 06/25/24 21:02 Temperature Source Temporal Artery Scan 06/25/24 21:02 Pulse Rate 95 06/25/24 21:02 Pulse Rhythm Regular 06/25/24 21:02 Pulse Strength 3+ Normal 06/25/24 21:02 Respiratory Rate 18 06/25/24 21:02 Blood Pressure 132/74 06/25/24 21:02 Blood Pressure Mean 93 06/25/24 21:02 Blood Pressure Position Sitting 06/25/24 21:02 Pulse Oximetry 100 06/25/24 21:02 Oxygen Delivery Method Room Air 06/25/24 21:02 Vital Signs Temperature 98.0 F 06/25/24 21:02 Pulse Rate 95 06/25/24 21:02 Respiratory Rate 18 06/25/24 21:02 Blood Pressure 132/74 06/25/24 21:02 Pulse Oximetry 100 06/25/24 21:02 Oxygen Delivery Method Room Air 06/25/24 21:02 Temperature 98.0 F 06/25/24 22:46 Pulse Rate 90 06/25/24 22:46 Respiratory Rate 20 06/25/24 22:46 Blood Pressure 112/70 06/25/24 22:46 Pulse Oximetry 100 06/25/24 22:45 Oxygen Delivery Method Room Air 06/25/24 22:45 MDM - Chest Pain MDM Narrative Medical decision making narrative: Patient is a 19-year-old female presenting for chest pain. The differential diagnosis of chest pain is broad and includes common etiologies such as mu sculoskeletal strain, GERD, pneumonia, etc. More serious etiologies considered include PE, coronary artery disease, pneumothorax, aortic dissection, aortic aneurysm. We will do a chest x-ray look for signs of pneumonia or pneumothorax. PE seems unlikely at this time. Troponin EKG to look for coronary artery disease or other arrhythmias. With her otherwise stable vital signs aortic dissection aortic aneurysm seem very unlikely. Also ordered a COVID/flu/RSV, BMP, CBC, test. Patient's lab work returned showing no concerning abnormalities. Chest x-ray shows no concerning findings as reviewed by myself and the radiologist. EKG and troponin showed no concerning findings. Concerning symptoms have been on and off for several days and she is currently asymptomatic and not believe a repeat troponin is necessary. At this time I cannot say what is causing her symptoms but I have ruled out the emergencies. On my review vital signs are stable throughout time in in the emergency department. Oximetry stayed in the mid to high 90s. potline monitor showed no concerning arrhythmias. She can be safely discharged home. She is agreeable to this plan Lab Data Labs: Lab Results 06/25/24 06/25/24 Range/Units 21:10 21:18 WBC 6.84 (4.50-11.00) K/uL RBC 4.42 (4.00-5.20) m/uL Hgb 13.0 (12.0-16.0) gm/dL Hct 38.9 (33.0-51.0) % MCV 88 (80-100) fL MCH 29 (26-34) pg MCHC 33 (32-36) gm/dL RDW Coeff of Margaret 12.7 (11.5-15.5) % Plt Count 257 (140-440) K/uL Neut % (Auto) 47.3 (42.0-72.0) % Lymph % (Auto) 34.9 (20-44) % Sawyer % (Auto) 13.3 H (0.0-11.0) % Eos % (Auto) 3.5 (0.0-7.0) % Baso % (Auto) 0.9 (0.0-3.0) % Neut # (Auto) 3.23 (1.7-7.0) K/uL Lymph # (Auto) 2.39 (0.90-2.90) K/uL Sawyer # (Auto) 0.90 (0.00-0.90) K/UL Eos # (Auto) 0.24 (0.00-0.50) K/uL Baso # (Auto) 0.06 (0.00-0.30) K/uL Abs Immat Gran (auto) 0.01 (0.00-0.30) K/uL Imm/Tot Granulo (auto) 0.1 % Sodium 137 (135-149) mmol/L Potassium 4.6 (3.6-5.1) mmol/L Chloride 104 (96-114) mmol/L Carbon Dioxide 26 (20-32) mmol/L Anion Gap 7 (7-15) mEq/L BUN 12 (5-24) mg/dL Creatinine 0.5 (0.5-1.5) mg/dL Estimated Creat Clear 160.15 Estimated GFR 137 ml/min Glucose 99 (60-115) mg/dL Calcium 9.4 (8.4-10.6) mg/dL HCG, Qual Negative (Negative) SARS-CoV-2 (PCR) Negative SARS-CoV-2 (Negative) Influenza Type A (PCR) Negative PCR FLU A (Negative) Influenza Type B (PCR) Negative PCR FLU B (Negative) RSV (PCR) Negative PCR RSV (Negative) POC Troponin I 0.00 L (0.01-0.04) ng/ml Imaging Data Chest x-ray: Radiologist's impression: No acute or significant findings. Dictated by Kannan Vaughan MD @ 06/25/2024 10:29:24 PM ECG Data Attestation: I personally reviewed and interpreted this ECG as follows: Interpretation: Sinus tachycardia the rate 101 beats per minute, normal intervals, normal axis, no ST or T-wave abnormalities. Discharge Plan Discharge Clinical Impression: Atypical chest pain Patient Disposition: Home, Self-Care Condition: Stable Instructions: Noncardiac Chest Pain (ED) Additional Instructions: Follow-up with your primary care provider if symptoms persist. Return to emergency department for new or worsening symptoms. Prescriptions: No Action norgestimate-ethinyl estradiol [Tri-Sprintec (28)] 0.18/0.215/0.25 mg-35 mcg (28) tablet 1 tab PO DAILY Qty: 84 3RF Follow Up/Referrals: Mary Goode MD [Primary Care Provider] - Stand Alone Forms: [employer] [facility] Info Instructions
[2024-06-25 21:52] LABS: PCR FLU A Negative PCR FLU A (Negative); PCR FLU B Negative PCR FLU B (Negative); PCR RSV Negative PCR RSV (Negative); SARS PCR* Negative SARS-CoV-2 (Negative)
[2024-06-25 21:57] LABS: HCG Qualitative Serum* Negative (Negative)
[2024-06-25 22:02] VITALS: BP 108/75; PULSE 94; RESP 20; O2SAT 100
[2024-06-25 22:45] VITALS: BP 112/70; PULSE 90; RESP 20; TEMP 36.7; O2SAT 100
[2024-06-25 22:46] VITALS: BP 112/70; PULSE 90; RESP 20; TEMP 36.7
== END 2024-06-25 22:47 | disposition home or self-care (01) ==
PROVIDERS: Emergency Provider Student in an Organized Health Care Education/Training Program; PCP Family Medicine
DX: R07.9 Chest pain, unspecified (principal)
CPT/HCPCS: 36415; 71046; 80048; 84484; 84703; 85025; 87631; 93005; 99284